=== PATIENT | female | born 1965 | race Caucasian/White ===

== ENCOUNTER → 2017-02-20 | Outpatient (CLI) | payer BC ==
--- NOTE | ~2017-02-20 | ECHO ---
Transthoracic Echocardiography Report (TTE) Demographics Patient Name MALLIKA PULIDO I Date of Study 02/20/2017 Patient Number [id number] Visit Number [id number] Date of 1965 Room Number Accession Number [id number] Gender Female Age 51 year(s) Referring Nautical Instrument Mechanic Gerber Ramsay RVT, Physician RDCS Physician Interpreting Chong Ramsey MD Cellar Supervisor Physician Supervising Ordering Physician Liz Mayo DO, MD/MLP Nurse Stress Morgue Technician Conclusions Contractility Score Summary Normal Left Ventricular contractility was noted. Summary The estimated left ventricular ejection fraction is 60-65%. The left ventricle is normal in size . Diastolic assessment reveals normal relaxation. Procedure Type of Study TTE procedure:2D Echocardiogram. Procedure Date Date: 02/20/2017 Start: 12:52 PM Study Location: Echo Lab Technical Quality: Good visualization Indications:Edema. Appropriate Use Criteria: 8 Patient Status: Routine Rhythm: NSR HR: 59 bpm BP: 120/58 mmHg M-Mode/2D Measurements LV Diastolic Dimension: 4.3 cm LV Systolic Dimension: 2.11 cm LV Septum Diastolic: 0.93 cm LV PW Diastolic: 0.97 cm AO Root Dimension: 2.2 cm Cardiac Output: 2.84 l/min AV Cusp Separation: 1.6 cm RV Diastolic Dimension: 2.45 cm LA volume: 53 ml LVOT: 1.8 cm RV Base: 3.23 cm LVOT VTI: 18.9 cm RV Mid: 3.07 cm LV Stroke volume: 48.07 ml TAPSE: 2.15 cm TDI-S': 14.6 cm/s Doppler Measurements AV Peak Velocity: 1.46 m/s MV Peak E-Wave: 1.07 m/s AV Peak Gradient: 8.53 mmHg MV Peak A-Wave: 0.56 m/s AV Mean Gradient: 5 mmHg MV E/A Ratio: 1.9 LVOT Peak Velocity: 0.8 m/s MV P1/2t: 61 msec TR Gradient:18.15 mmHg PV Peak Velocity: 1.06 m/s Estimated RAP:5 mmHg PV Peak Gradient: 4.49 mmHg Estimated RVSP: 23 mmHg Estimated PASP: 23.15 mmHg E' Septal Velocity: 0.07 m/s A' Septal Velocity: 0.11 m/s E' Lateral Velocity: 0.13 m/s A' Lateral Velocity: 0.14 m/s Findings Left Ventricle The left ventricle is normal in size . Diastolic assessment reveals normal relaxation. Right Ventricle Normal right ventricle structure and function. Left Atrium Normal left atrial size. There is no evidence of patent foramen ovale or atrial septal defect by color Doppler. Right Atrium Normal right atrial size. IVC measures 1.82 cm with inspiratory collapse. Mitral Valve Normal mitral valve structure and function. Aortic Valve Normal aortic valve structure and function. Tricuspid Valve Normal tricuspid valve structure and function. Trivial tricuspid regurgitation by color Doppler. Pulmonic Valve Normal pulmonic valve structure and function. Pericardial Effusion No evidence of pericardial effusion. Miscellaneous Visualized portions of the aortic root and ascending aorta appear normal in size. Pleural Effusion No evidence of pleural effusion. Contractility Score LV regional wall motion:(0-Non visualized 1-Normal 2-Hypokinesis 3-Akinesis 4-Dyskinesis 5-Aneurysm) Signature dtt: Braulio Schwarz (cardio) dtd: 02/20/17 1252 Physician Self Edit
== END | disposition disaster alternative care site (69) ==
LOC: GCAR 12:16
DX: R60.0 Localized edema (principal)